=== PATIENT | male | born 1955 | race Caucasian/White ===

== ENCOUNTER 2017-01-17 13:35 | Emergency (ER) | payer OTHER ==
[2017-01-17 14:25] LABS: BASOPHIL 0.2 % (0-2); EOSINOPHIL 3.6 % (0-5); HCT 42.9 % (42.0-52.0); HGB 14.5 g/dl (13.2-18.0); LYMPHOCYTE 20.5 % (15-48); MCH 31.2 pg (25.0-31.0); MCHC 33.8 g/dL (32.0-36.0); MCV 92.3 fL (78.0-100.0); MONOCYTE 10.3 % (0-12); MPV 8.4 fL (6.0-9.5); NEUTROPHIL 65.4 % (41-80); PLT 287 K/uL (150-400); RBC 4.65 M/uL (4.70-6.00); RDW 14.2 % (11.5-14.0); WBC 8.1 K/uL (4.0-10.5)
[2017-01-17 14:43] LABS: INR 1.03 (0.9-1.2); PROTHROMBIN TIME 13.1 SECONDS (11.7-14.0); PTT 28.6 SECONDS (23.2-31.4)
[2017-01-17 14:45] LABS: ALBUMIN 4.1 g/dL (3.4-4.8); BILIRUBIN - TOTAL 0.8 mg/dL (0.1-1.0); CREATININE 0.9 mg/dL (0.7-1.2); MAGNESIUM 1.97 mg/dL (1.40-2.10); POTASSIUM 4.1 mmol/L (3.5-5.1); TOTAL PROTEIN 7.1 g/dL (6.4-8.3)
[2017-01-17 14:47] LABS: CKMB 9.08 ng/mL (0.97-4.94); TROPONIN T 0.585 ng/mL
== END 2017-01-17 19:39 | disposition admitted as inpatient to this hospital (09) ==
LOC: FER 13:35
PROVIDERS: Internal Medicine
DX: I21.4 Non-ST elevation (NSTEMI) myocardial infarction (principal); Z87.442 Personal history of urinary calculi
CPT/HCPCS: 36415; 71010; 80053; 82550; 82553; 83735; 83874; 83880; 84484; 85025; 85610; 85730; 93005; J1644